=== PATIENT | male | born 1990 | race Caucasian/White ===

== ENCOUNTER 2020-09-05 14:07 | Emergency (ER) | payer OTHER ==
[~2020-09-05] VITALS: Ht 170.2 cm; Wt 59.0 kg
--- NOTE | 2020-09-05 14:22 | NUR ---
[id number], FAMILY CALLED 911 FOR "SEIZURE LIKE" EPISODE X1 MIN. POST-ICTAL PER EMS. -HEAD INJURY, - ORAL TRAUMA. BS 143 IN THE FIELD. PATIENT IS NOW A/OX4, BREATHING EVEN AND UNLABORED, NO SOB NOTED, TACHYCARDIC ON THE MONITOR. DENIES ANY INJURY.
[2020-09-05] MEDS ORDERED: LORAZEPAM INJ 2 MG/ML VIAL ONE ×2 (14:31→16:33)
--- NOTE | 2020-09-05 14:37 | NUR ---
PATIENT RESTING, NO DISTRESS NOTED.
[2020-09-05] MEDS: IV NS 0.9% 1,000 ML BAG IV ONE (14:49)
[2020-09-05] MEDS: LORAZEPAM INJ 2 MG/ML VIAL IVP ONE (14:49)
--- NOTE | 2020-09-05 14:50 | NUR ---
PHLEB AT BEDSIDE.
[2020-09-05 15:08] LABS: BASOPHILS % (AUTO) 0.5 % (0.0-2.0); EOSINOPHILS % (AUTO) 0.1 % (0.0-6.0); HEMATOCRIT 31 % (39-51); HEMOGLOBIN 9.9 g/dL (13.5-17.5); LYMPHOCYTES # (AUTO) 0.4 /CMM (0.8-4.8); LYMPHOCYTES % (AUTO) 12.6 % (20.0-44.0); MEAN CORPUSCULAR HGB CONC 32 g/dl (31.0-36.0); MEAN CORPUSCULAR VOLUME 88 fL (80-96); MONOCYTES # (AUTO) 0.3 /CMM (0.1-1.30); MONOCYTES % (AUTO) 10.4 % (2.0-12.0); NEUTROPHILS # (AUTO) 2.4 /CMM (1.8-8.9); NEUTROPHILS % (AUTO) 76.4 % (43.0-81.0); PLATELET COUNT (AUTO) 168 /CMM (150-450); WHITE BLOOD COUNT (AUTO) 3.2 K/uL (4.3-11.0)
[2020-09-05 15:10] LABS: CALCIUM, SERUM 8.8 mg/dL (8.5-10.1); CREATININE 0.8 mg/dL (0.6-1.3); POTASSIUM 3.6 mmol/L (3.5-5.1)
[2020-09-05 15:18] LABS: ALBUMIN 2.9 g/dL (3.4-5.0); BILIRUBIN,DIRECT 0.8 mg/dL (0.0-0.2); BILIRUBIN,TOTAL 1.1 mg/dL (0.2-1.0); TOTAL PROTEIN, SERUM 9.8 g/dL (6.4-8.2)
[2020-09-05] MEDS: LORAZEPAM INJ 2 MG/ML VIAL IV ONE (16:39)
--- NOTE | 2020-09-05 16:42 | NUR ---
PATIENT RESTING, NO DISTRESS. NO EPISODE OF SEIZURE.
[2020-09-05] MEDS ORDERED: CHLORDIAZEPOXIDE HCL 25 MG CAPSULE ONE (16:58)
[2020-09-05] MEDS: CHLORDIAZEPOXIDE HCL 25 MG CAPSULE PO ONE (17:06)
--- NOTE | 2020-09-05 17:07 | NUR ---
Patient a/ox4, breathing even and unlabored, no sob noted. denies pain. IV removed. Catheter intact and site benign. Pressure and 4x4 applied to site. No bleeding noted.Patient discharged to home in stable condition. Written and verbal after care instructions given. Patient verbalizes understanding of instruction.
[2020-09-05 17:08] VITALS: BP 128/90
== END 2020-09-05 17:08 | disposition home or self-care (01) ==
LOC: ER 14:09
DX: R56.9 Unspecified convulsions (principal); F10.239 Alcohol dependence with withdrawal, unspecified; D64.9 Anemia, unspecified; K70.10 Alcoholic hepatitis without ascites; R25.3 Fasciculation; R00.0 Tachycardia, unspecified; Y90.9 Presence of alcohol in blood, level not specified
CPT/HCPCS: 36415; 71045; 80048; 80076; 83690; 85025; 93005; 96361; 96374; 96376; 99285; J2060 ×2; J7030

== ENCOUNTER 2023-03-18 14:10 | Emergency (ER) | payer OTHER ==
[~2023-03-18] VITALS: Ht 170.2 cm; Wt 54.9 kg
--- NOTE | 2023-03-18 14:10 | NUR ---
RECEIVED PT BY USHA C/O HEADACH AND DIZZNESS HX FALL 3 DAYS AGO [facility] MONTO[facility]
[2023-03-18] MEDS ORDERED: IV NS 0.9% 1,000 ML BAG IV ONE (14:30)
[2023-03-18] MEDS ORDERED: ACETAMINOPHEN ES 500 MG TABLET PO ONE (14:30)
[2023-03-18] MEDS ORDERED: LORAZEPAM INJ 2 MG/ML VIAL IV ONE (14:30)
--- NOTE | 2023-03-18 14:40 | NUR ---
INSERTED ANGO CATHETER G 20 ON LT HAND BLOOD DROW AND SENT TO LAB
[2023-03-18] MEDS ORDERED: LORAZEPAM INJ 2 MG/ML VIAL ONE (14:46)
[2023-03-18] MEDS ORDERED: ACETAMINOPHEN ES 500 MG TABLET ONE (14:46)
--- NOTE | 2023-03-18 15:00 | NUR ---
TO CT SCAN OF HEAD
[2023-03-18 15:22] LABS: BASOPHILS % (AUTO) 0.4 % (0.0-2.0); EOSINOPHILS % (AUTO) 1.3 % (0.0-6.0); HEMATOCRIT 31 % (39-51); HEMOGLOBIN 10.2 g/dL (13.5-17.5); LYMPHOCYTES % (AUTO) 18.1 % (20.0-44.0); MEAN CORPUSCULAR HGB CONC 34 g/dl (31.0-36.0); MEAN CORPUSCULAR VOLUME 92 fL (80-96); MONOCYTES # (AUTO) 0.4 K/uL (0.1-1.30); MONOCYTES % (AUTO) 7.6 % (2.0-12.0); NEUTROPHILS # (AUTO) 3.8 K/uL (1.8-8.9); NEUTROPHILS % (AUTO) 72.6 % (43.0-81.0); PLATELET COUNT (AUTO) 118 K/uL (150-450); RED BLOOD CELL COUNT(AUTO) 3.33 MIL/uL (4.5-6.0); WHITE BLOOD COUNT (AUTO) 5.3 K/uL (4.3-11.0)
[2023-03-18 15:44] LABS: CALCIUM, SERUM 9.2 mg/dL (8.5-10.1); CREATININE 0.5 mg/dL (0.6-1.3); POTASSIUM 4.3 mmol/L (3.5-5.1)
[2023-03-18 15:50] LABS: ALBUMIN 3.3 g/dL (3.4-5.0); BILIRUBIN,DIRECT 1.6 mg/dL (0.0-0.2); BILIRUBIN,TOTAL 2.2 mg/dL (0.2-1.0); TOTAL PROTEIN, SERUM 8.9 g/dL (6.4-8.2)
--- NOTE | 2023-03-18 16:00 | NUR ---
AWAKE AND FALLOW COMMAND NO PAIN NOTED RESTING AT THIS TIME
[2023-03-18] MEDS ORDERED: Magnesium 1GM/D5W 100ML PREMIX 200 ML IV ONE (16:43)
[2023-03-18] MEDS: Magnesium 1GM/D5W 100ML PREMIX 100 ML IV SCH ×2 (16:54→17:49)
--- NOTE | 2023-03-18 17:35 | NUR ---
MAGNESUM 1 GM IVPB INFUSED AND PATENT
--- NOTE | 2023-03-18 18:50 | NUR ---
DR. PULLIAM AT BED SIDE SPOOK WITH PT
--- NOTE | 2023-03-18 18:55 | NUR ---
IV removed. Catheter intact and site benign. Pressure and 4x4 applied to site. No bleeding noted.
--- NOTE | 2023-03-18 19:05 | NUR ---
(pt. name) ambulatory with a steady gait
--- NOTE | 2023-03-18 19:10 | NUR ---
Patient discharged to home in stable condition. Written and verbal after care instructions given. Patient verbalizes understanding of instruction.
[2023-03-18 19:25] VITALS: BP 113/85; TEMP 98.3
== END 2023-03-18 19:25 | disposition home or self-care (01) ==
LOC: ER 14:16
DX: S00.511A Abrasion of lip, initial encounter (principal); S00.81XA Abrasion of other part of head, initial encounter; D64.9 Anemia, unspecified; D69.6 Thrombocytopenia, unspecified; E87.6 Hypokalemia; E83.42 Hypomagnesemia; F10.939 Alcohol use, unspecified with withdrawal, unspecified; Y90.6 Blood alcohol level of 120-199 mg/100 ml; X58.XXXA Exposure to other specified factors, initial encounter; Y93.89 Activity, other specified; Y92.89 Other specified places as the place of occurrence of the external cause; Y99.8 Other external cause status
CPT/HCPCS: 99285; 96365; 96361; 96366; 96375; 71045; 70450; 70486; 85025; 80048; 80076; 83735; 36415; 85730; 86850; 80320; J2060; J7030; A4223; J3475; G0480

== ENCOUNTER 2024-01-03 10:11 | Emergency (ER) | payer OTHER ==
[~2024-01-03] VITALS: Ht 170.2 cm; Wt 56.7 kg
[2024-01-03 11:04] LABS: BASOPHILS % (AUTO) 0.4 % (0.0-2.0); EOSINOPHILS % (AUTO) 0.1 % (0.0-6.0); HEMATOCRIT 24 % (39-51); HEMOGLOBIN 8.3 g/dL (13.5-17.5); LYMPHOCYTES # (AUTO) 0.3 K/uL (0.8-4.8); LYMPHOCYTES % (AUTO) 6.8 % (20.0-44.0); MEAN CORPUSCULAR HEMOGLOBIN 27 PG (26.0-33.0); MEAN CORPUSCULAR HGB CONC 34 g/dl (31.0-36.0); MEAN CORPUSCULAR VOLUME 80 fL (80-96); MONOCYTES # (AUTO) 0.5 K/uL (0.1-1.30); MONOCYTES % (AUTO) 12.9 % (2.0-12.0); NEUTROPHILS % (AUTO) 79.8 % (43.0-81.0); RED BLOOD CELL COUNT(AUTO) 3.05 MIL/uL (4.5-6.0); WHITE BLOOD COUNT (AUTO) 3.8 K/uL (4.3-11.0)
[2024-01-03 11:07] LABS: CALCIUM, SERUM 8.3 mg/dL (8.5-10.1); CARBON DIOXIDE 22 mmol/L (21-32); CHLORIDE 93 mmol/L (98-107); CREATININE 0.7 mg/dL (0.6-1.3); GLUCOSE 145 mg/dL (74-106); POTASSIUM 3.7 mmol/L (3.5-5.1); SODIUM SERUM 129 mmol/L (136-145); UREA NITROGEN, BLOOD 20 mg/dL (7-18)
[2024-01-03 11:12] LABS: PLATELET COUNT (AUTO) 33 K/uL (150-450)
[2024-01-03] MEDS: IV NS 0.9% 1,000 ML BAG IV ONE (11:23)
[2024-01-03] MEDS: VANCOMYCIN 1 GM in IV D5W 250 ML IV ONE (11:30)
[2024-01-03 11:39] LABS: ALANINE AMINOTRANSFERASE 111 U/L (12-78); ALBUMIN 3.4 g/dL (3.4-5.0); ALKALINE PHOSPHATASE 155 U/L (46-116); ASPARTATE AMINOTRANSFERASE 226 U/L (15-37); BILIRUBIN,DIRECT 3.8 mg/dL (0.0-0.2); BILIRUBIN,TOTAL 6.8 mg/dL (0.2-1.0); TOTAL PROTEIN, SERUM 7.7 g/dL (6.4-8.2)
[2024-01-03 11:50] LABS: LACTIC ACID 2.4 mmol/L (0.4-2.0)
[2024-01-03 11:53] LABS: INR 1.75 (0.91-1.10); PROTHROMBIN TIME 17.5 SECS (9.2-11.1)
[2024-01-03] MEDS ORDERED: IOHEXOL-300 100 ML VIAL IV ONE (11:57)
[2024-01-03] MEDS ORDERED: IV NS 0.9% 250 ML IV ONE (11:57)
[2024-01-03 12:14] LABS: ANISOCYTOSIS 1+; BASOPHILS % (MANUAL) 0 % (0.0-2.0); EOSINOPHILS % (MANUAL) 0 % (0-4); LYMPHOCYTES % (MANUAL) 6 % (16-48); MONOCYTES % (MANUAL) 11 % (0-11.0); NEUTROPHILS % (MANUAL) 83 (42-76); OVALOCYTES 1+; PLATELET ESTIMATE DECREASED
[2024-01-03] MEDS: CEFEPIME 1 GM in IV D5W 50 ML IV ONE (12:25)
[2024-01-03] MEDS ORDERED: FOLI0.4T6 PO (13:27)
[2024-01-03] MEDS ORDERED: OMEP20CA15 PO (13:27)
[2024-01-03] MEDS ORDERED: BICT1TAB PO (13:27)
[2024-01-03] MEDS ORDERED: MORPHINE SULFATE INJ 4 MG/ML DISP.SYRIN ONE (13:47)
[2024-01-03] MEDS ORDERED: ONDANSETRON HCL/PF 4 MG/2 ML VIAL ONE (13:47)
[2024-01-03] MEDS: MORPHINE SULFATE INJ 2 MG/ML DISP.SYRIN IV ONE (13:53)
[2024-01-03] MEDS: ONDANSETRON HCL/PF - ER 4 MG/2 ML VIAL IV ONE (13:54)
[2024-01-03 14:39] LABS: APPEARANCE,URINE Clear (CLEAR); BILIRUBIN,URINE SMALL (NEGATIVE); BLOOD, URINE Negative Ery/uL (NEGATIVE); COLOR,URINE DARK YELLOW (YELLOW); KETONES,URINE 80 mg/dL (NEGATIVE); LEUKOCYTE ESTERASE ,URINE Negative (NEGATIVE); NITRITE, URINE Negative (NEGATIVE); PROTEIN,URINE Negative (NEGATIVE); UGLUCOSE Negative (NEGATIVE)
[2024-01-03 15:08] LABS: ADD URINE CULTURE NO; BACTERIA,URINE Rare /HPF (None Seen); WBC,URINE 0-2 /HPF (0-3)
[2024-01-03 15:09] LABS: SQUAMOUS EPITHELIAL CELL,UR Rare /HPF (None Seen)
[2024-01-03 18:38] VITALS: BP 110/86; TEMP 98.2; O2SAT 97
[2024-01-04 10:10] LABS: *BANDS 19 % (Not Estab.); *BASOS 0 % (Not Estab.); *EOS 0 % (Not Estab.); *HCT 22.9 % (37.5-51.0); *HGB 8.2 g/dL (13.0-17.7); *LYMPHOCYTES 5 % (Not Estab.); *LYMPHS, ABSOLUTE 0.2 x10E3/uL (0.7-3.1); *MCH 27.1 pg (26.6-33.0); *MCHC 35.8 g/dL (31.5-35.7); *MCV 76 fL (79-97); *MONOCYTES 7 % (Not Estab.); *MONOS, ABSOLUTE 0.3 x10E3/uL (0.1-0.9); *NEUTROPHILS 68 % (Not Estab.); *NEUTROPHILS, ABSOLUTE 3.4 x10E3/uL (1.4-7.0); *PLT 37 x10E3/uL (150-450); *RBC 3.03 x10E6/uL (4.14-5.80); *WBC 3.9 x10E3/uL (3.4-10.8)
[2024-01-04 11:12] LABS: *% CD 4 POS. LYMPH 50.4 % (30.8-58.5); *% CD 8 POS. LYMPH 30.2 % (12.0-35.5); *ABSOLUTE CD 4 HELPER 101 /uL (359-1519); *ABSOLUTE CD 8 SUPPRESSOR 60 /uL (109-897); *CD4/CD8 RATIO 1.67 (0.92-3.72)
== END 2024-01-03 18:38 | disposition short-term general hospital (02) ==
LOC: ER 10:12
DX: K85.90 Acute pancreatitis without necrosis or infection, unspecified (principal); D69.6 Thrombocytopenia, unspecified; K70.10 Alcoholic hepatitis without ascites; D53.9 Nutritional anemia, unspecified; R10.32 Left lower quadrant pain; R07.9 Chest pain, unspecified
CPT/HCPCS: 99291; 74177; 96365; 76705; 71045; 96361; 96375 ×2; 99292; 96368; 93005 ×3; 84145; 85025; 80048; 87040 ×2; 87086; 83605 ×2; 83690; 80076; 81001; 36415; 84484; 85730; 86360; 85007; J2270; J3370; J2405 ×2; J7060; J7030; J7050; A4223; J0692; Q9967